=== PATIENT | male | born 1990 | race Caucasian/White ===

== ENCOUNTER 2021-08-21 06:35 | Day surgery (SDC) | payer OTHER ==
[2021-08-21 07:04] LABS: Absolute Lymphocytes (CBC) 1.2 K/uL (0.7-4.9); Hematocrit 49.5 % (39.6-49.0); Lymphocytes % 20.3 % (15.3-44.8); RBC Red Blood Cell Count 5.72 M/uL (4.33-5.43)
[2021-08-21] MEDS ORDERED: Ringers Lactate 1,000 ML IV ONE (07:12)
[2021-08-21 07:17] LABS: Potassium 3.9 mmol/L (3.5-5.1)
[2021-08-21] MEDS ORDERED: propofoL 200 MG/20 ML VIAL IV ONE (08:15)
[2021-08-21] MEDS ORDERED: dexAMETHasone 10 MG/ML VIAL ONE (08:15)
[2021-08-21] MEDS ORDERED: FENTANYL CITR 100 MCG/2 ML ONE (08:15)
[2021-08-21] MEDS ORDERED: KETOROLAC 30 MG/ML INJ ONE (08:15)
[2021-08-21] MEDS ORDERED: ROCURONIUM 50 MG/5 ML VIAL IV ONE (08:15)
[2021-08-21] MEDS ORDERED: LIDOCAINE 2% MPF 5 ML VIAL ONE (08:15)
[2021-08-21] MEDS ORDERED: MIDAZOLAM HCL 2 MG/2 ML INJ ONE (08:16)
[2021-08-21] MEDS ORDERED: ONDANSETRON 4 MG/2 ML VIAL ONE (08:16)
[2021-08-21] MEDS ORDERED: CEFAZOLIN/NS 1gm 1 GM/50 ML BAG ONE (08:30)
--- NOTE | 2021-08-21 09:30 | P.BOP ---
Preoperative diagnosis: tender posterior neck and left upper back subQ mass Postoperative diagnosis: same Primary procedure: 1. Excisional biopsy tender posterior neck subQ mass 3 x 3 cm Secondary procedure: 2. Excisional biopsy tender L upper back subQ mass 3 x 2.5 cm Estimated blood loss: <10cc Specimen: mass x 2 Findings: posterior neck and left upper back subQ mass Anesthesia: General Complications: None Transferred to: Recovery Room Condition: Good
--- NOTE | 2021-08-21 10:30 | OP ---
Date of Procedure: 08/21/2021 Surgeon: Sanjay Ortiz MD Preoperative Diagnosis: Tender posterior neck and left upper back subcutaneous mass. Postoperative Diagnosis: Tender posterior neck and left upper back subcutaneous mass. Procedures: 1.Excisional biopsy of tender posterior neck posterior subcutaneous mass 3 x 3 cm. 2.Excisional biopsy of tender left upper back subcutaneous mass 3 x 2.5 cm. Estimated Blood Loss: Less than 10 mL. Specimen: Mass x2. Finding: Deep posterior neck and left upper back subcutaneous mass. Anesthesia: General plus local. Indication: This is the case of a 30-year-old patient with those 2 masses, increasing in size and di scomfort and pain. He wants them excised. Benefits, alternatives, and risks of excision were fully explained, which include, but not limited to infection, bleeding, damage to adjacent structures, anes thesia complications, nonhealing wound, NH, and even . He also understands the chance of recurr ence, this may not relieve any symptoms. He might need more than one surgical intervention. He unde rstood, signed a consent. The areas of concern were marked by me and the patient in the holding room . Procedure In Detail: The patient was brought to the operating room, placed in supine position. Anes thesia was done without complication. The patient was placed in lateral decubitus position with prop er protection. The neck and back area were prepped and draped in usual sterile fashion. We proceede d to do the deep posterior neck area first. Each incision was done individually, but using the same technique which consisted of wedge incision of the skin all the way down to subcutaneous tissues sinc e this mass seems to be also attached to the skin. This goes all the way down to fascia of the muscl e, does not include the fascia of the muscle. Mass was completely excised and then this was closed a nd hemostasis was obtained. Local anesthesia was applied and closed with 3-0 chromic in the subcutan eous tissue and 3-0 nylon on the skin. Sponge count, instrument counts done. Then, we proceeded to do the left upper shoulder using the same technique and same closure. Sponge count and instrument co unts were correct for both cases. The patient tolerated the procedure well. The patient was sent to recovery in stable condition. AIMEE/BROOKS Voice ID: [id number] Report ID: [id number]
--- NOTE | 2021-08-21 10:30 | DS ---
Diagnosis: Tender posterior neck and left upper back subcutaneous mass. Procedure: Excision biopsy of posterior neck and left lower back subcutaneous mass. Disposition: Home. Activity: As tolerated. No heavy lifting. Plan: Followup in my office in 1 week. Call for appointment at [phone]. Keep area dry for 48 hour s, then may shower. Then, apply triple antibiotics and a gauze. Medications: Include Tylenol No.3 q.4 hours p.r.n. pain and Bactrim DS p.o. b.i.d. AIMEE/BROOKS Voice ID: [id number] Report ID: [id number]
[2021-08-21 11:03] VITALS: BP 117/69; TEMP 97.8; O2SAT 95
== END 2021-08-21 11:15 | disposition home or self-care (01) ==
LOC: OR 06:35
PROVIDERS: ATTEND Surgery
PROC: 0JB50ZZ Excision of Left Neck Subcutaneous Tissue and Fascia, Open Approach (ICD-10-PCS; 2021-08-21)
PROC: 0JB70ZZ Excision of Back Subcutaneous Tissue and Fascia, Open Approach (ICD-10-PCS; principal; 2021-08-21 08:30)
DX: L72.0 Epidermal cyst (principal); R22.1 Localized swelling, mass and lump, neck; U07.1 COVID-19
CPT/HCPCS: 85025; 80048; 36415; 88305; 11403; 11423; U0003; J2704; J2250; J3010; J1100; J0690; J7120; J2405; 88304

== ENCOUNTER 2021-08-26 13:57 | Emergency (ER) | payer OTHER ==
--- NOTE | 2021-08-26 15:30 | ER ---
Nurse's Notes [facility] Name: Dean Slater Age: 30 yrs Sex: Male : 1990 Arrival Date: 08/26/2021 Time: 14:06 Bed 5 Private MD: Diagnosis: Encounter for surgical aftercare following surgery on the skin and subcutaneous tissue Presentation: 08/26 14:18 Chief complaint: Patient states: had a cyst removed from back of neck by Dr Ortiz vg1 about a week ago, states incision has been fine and healing up until today. States about an hour ago felt a 'trickling' and fel behind neck and there was a 'large amount of blood and fluid' that came out, states 'it soaked my shirt'. Pt states back of neck 'feel tight and is throbbing'. Coronavirus screen: Vaccine status: Patient reports being unvaccinated. Client denies travel out of the [place] in the last 14 days. Ebola Screen: Patient negative for fever greater than or equal to 101.5 degrees Fahrenheit, and additional compatible Ebola Virus Disease symptoms. Initial Sepsis Screen: Does the patient meet any 2 criteria? HR > 90 bpm. Does the patient have a suspected source of infection?. Risk Assessment: Do you want to hurt yourself or someone else? Patient reports no desire to harm self or others. Onset of symptoms was August 26, 2021. 14:18 Method Of Arrival: Ambulatory vg1 14:18 Acuity: KRISTYN 3 vg1 Triage Assessment: 14:21 General: Appears uncomfortable, Behavior is calm, cooperative. Pain: Complains of pain vg1 in back of neck. Historical: - Allergies: 14:21 No Known Allergies; vg1 - Home Meds: 14:21 sulfamthoxazol [Active]; Tylenol #3 Oral [Active]; vg1 - PMHx: 14:21 None; vg1 - Immunization history:: Client reports having NOT received the Covid vaccine. - Social history:: Smoking status: Patient denies any tobacco usage or history of. Patient uses alcohol, occasionally. Screenin:56 Abuse screen: Denies threats or abuse. Denies injuries from another. Nutritional ph screening: No deficits noted. Tuberculosis screening: No symptoms or risk factors identified. Fall Risk None identified. Assessment: 15:53 General: Appears in no apparent distress. comfortable, well groomed, Behavior is calm, ph cooperative, appropriate for age, Denies fever, chills. Pain: Complains of pain in posterior cervical area. Neuro: Level of Consciousness is awake, alert, obeys commands, Oriented to person, place, time, situation. Cardiovascular: No deficits noted. Respiratory: No deficits noted. Derm: Skin is healthy with good turgor, Skin is pink, warm \T\ dry. incisions noted to cervical area and back of L shoulder, sutures in place, pt reports having cyst removal per Dr Ortiz, states that MANAGER DOCUMENTATION a large amount of blood and fluid came from site to back of neck, no bleeding currently noted. Musculoskeletal: Circulation, motion, and sensation intact. Range of motion: intact in all extremities. 15:57 Reassessment: Patient appears in no apparent distress at this time. Patient and/or ph family updated on plan of care and expected duration. Pain level reassessed. Patient is alert, oriented x 3, equal unlabored respirations, skin warm/dry/pink. Pt d/c home, has follow up Saturday w/ Dr Ortiz. Vital Signs: 14:18 BP 148 / 103; Pulse 106; Resp 17; Temp 97.8; Pulse Ox 99% ; Weight 105.23 kg; Height 5 vg1 ft. 6 in. (167.64 cm); Pain 4/10; 15:56 BP 138 / 97; Pulse 89; Resp 18; Temp 98.0; Pulse Ox 99% on R/A; ph 14:18 Body Mass Index 37.45 (105.23 kg, 167.64 cm) vg1 ED Course: 14:06 Patient arrived in ED. rg4 14:21 Triage completed. vg1 14:21 Arm band placed on. vg1 15:01 Coretta Manriquez FNP-C is PHCP. kb 15:01 Rafael Coughlin MD is Attending Physician. kb 15:19 Nadia Sage, IGOR is Primary Nurse. ph 15:56 Patient has correct armband on for positive identification. Placed in gown. Bed in low ph position. Call light in reach. Side rails up X 1. 15:56 No provider procedures requiring assistance completed. Patient did not have IV access ph during this emergency room visit. Administered Medications: No medications were administered Outcome: 15:30 Discharge ordered by . kb 15:57 Discharged to home ambulatory. ph 15:57 Condition: good 15:57 Discharge instructions given to patient, Instructed on discharge instructions, follow up and referral plans. Demonstrated understanding of instructions, follow-up care. 15:57 Patient left the ED. ph Signatures: Coretta Manriquez, STEFAN-C STEFAN-Nadia Fajardo RN RN ph Maria R Whitman4 Kimberly Whitman RN RN vg1
--- NOTE | 2021-08-26 15:30 | EDPHYS ---
Physician Documentation [facility] Name: Dean Slater Age: 30 yrs Sex: Male : 1990 Arrival Date: 08/26/2021 Time: 14:06 Bed 5 Private MD: ED Physician Rafael Coughlin HPI: 08/26 15:29 This 30 yrs old Male presents to ER via Ambulatory with complaints of Incision Problem. kb 15:29 Pt reports he had a cyst removed last week by Dr Ortiz. States today the site kb drained a large amount of blood and purulent fluid. Onset: The symptoms/episode began/occurred just prior to arrival. Severity of symptoms: At their worst the symptoms were moderate in the emergency department the symptoms have resolved. The patient has not experienced similar symptoms in the past. The patient has not recently seen a physician. Historical: - Allergies: 14:21 No Known Allergies; vg1 - Home Meds: 14:21 sulfamthoxazol [Active]; Tylenol #3 Oral [Active]; vg1 - PMHx: 14:21 None; vg1 - Immunization history:: Client reports having NOT received the Covid vaccine. - Social history:: Smoking status: Patient denies any tobacco usage or history of. Patient uses alcohol, occasionally. ROS: 15:27 Constitutional: Negative for fever, chills, and weight loss. kb 15:27 Skin: Positive for drainage from surgical incision site . 15:27 All other systems are negative. Exam: 15:28 Constitutional: This is a well developed, well nourished patient who is awake, alert, kb and in no acute distress. Head/Face: Normocephalic, atraumatic. ENT: Moist Mucous membranes Respiratory: Respirations even and unlabored. No increased work of breathing. Talking in full sentences MS/ Extremity: Pulses equal, no cyanosis. Neurovascular intact. Full, normal range of motion. Neuro: Awake and alert, GCS 15, oriented to person, place, time, and situation. Moves all extremities. Normal gait. Psych: Awake, alert, with orientation to person, place and time. Behavior, mood, and affect are within normal limits. 15:28 Skin: surgical incisions noted with sutures in place. Sites appear to be healing well. Swelling noted below incision site to neck. Vital Signs: 14:18 BP 148 / 103; Pulse 106; Resp 17; Temp 97.8; Pulse Ox 99% ; Weight 105.23 kg; Height 5 vg1 ft. 6 in. (167.64 cm); Pain 4/10; 15:56 BP 138 / 97; Pulse 89; Resp 18; Temp 98.0; Pulse Ox 99% on R/A; ph 14:18 Body Mass Index 37.45 (105.23 kg, 167.64 cm) vg1 MDM: 15:01 Patient medically screened. kb 15:26 Data reviewed: vital signs, nurses notes. Data interpreted: Pulse oximetry: on room air kb is 99 %. Interpretation: normal. Counseling: I had a detailed discussion with the patient and/or guardian regarding: the historical points, exam findings, and any diagnostic results supporting the discharge/admit diagnosis, the need for outpatient follow up, a general surgeon, to return to the emergency department if symptoms worsen or persist or if there are any questions or concerns that arise at home. Physician consultation: Sanjay Ortiz MD was contacted at 15:26, regarding consult, patient's condition, and will see patient in office, next week, Recommends dry gauze dressing, continue antibiotics and follow up in his office on Saturday. . ED course: Discussed plan with pt after speaking with dr Ortiz. Pt in agreement with plan of care. Administered Medications: No medications were administered Disposition: 08/27 13:22 Co-signature as Attending Physician, Rafael Coughlin MD I agree with the assessment and evens plan of care. Disposition Summary: 08/26/21 15:30 Discharge Ordered Location: Home kb Condition: Stable kb Diagnosis - Encounter for surgical aftercare following surgery on the skin and subcutaneous kb tissue Followup: kb - With: Emergency Department - When: As needed - Reason: Worsening of condition Followup: kb - With: Private Physician - When: 2 - 3 days - Reason: Recheck today's complaints, Continuance of care, Re-evaluation by your physician Discharge Instructions: - Discharge Summary Sheet kb - Incision Care, Adult, [id number] kb Forms: - Medication Reconciliation Form kb - Thank You Letter kb - Antibiotic Education kb - Prescription Opioid Use kb - Work release form eb Signatures: Dispatcher [employer] EDCoretta Diego, LEAD PL SQL DEVELOPER-C STEFAN-Rafael Holguin MD MD cha Garcia, Victoria, RN RN vg1 Corrections: (The following items were deleted from the chart) 08/26 15:32 15:05 [employer].JANE.ANDRES ordered. EDMS EDMS
[2021-08-26 16:09] VITALS: O2SAT 99
[2021-08-26 16:12] VITALS: BP 138/97; TEMP 98
== END 2021-08-26 15:57 | disposition home or self-care (01) ==
LOC: ER 13:57
DX: Z48.817 Encounter for surgical aftercare following surgery on the skin and subcutaneous tissue (principal)
CPT/HCPCS: 99281

== ENCOUNTER 2022-07-23 03:01 | Emergency (ER) | payer OTHER ==
--- NOTE | 2022-07-23 03:22 | EDPHYS ---
Physician Documentation [facility] Name: Dean Slater Age: 31 yrs Sex: Male : 1990 Arrival Date: 07/23/2022 Time: 03:05 Bed IW1 Private MD: ED Physician Renny Mays HPI: 07/23 03:24 This 31 yrs old Male presents to ER via Ambulatory with complaints of Jaw Pain, Facial rt Swelling. 03:24 The patient presents with swelling. The problem is located in the face. Onset: The rt symptoms/episode began/occurred yesterday. Duration: The symptoms are continuous. Modifying factors: The symptoms are alleviated by nothing, the symptoms are aggravated by nothing. Associated signs and symptoms: The patient has no apparent associated signs or symptoms. Severity of symptoms: At their worst the symptoms were mild. Presents to the ED with 1 day of left-sided facial swelling at the jawline. Denies any dental pain, difficulty swallowing. Denies fever, chills, neck stiffness. Denies other acute complaints at this time, symptoms are mild in severity, no other aggravating alleviating factors, pain is aching nature, nonradiating. Historical: - Allergies: 03:16 No Known Allergies; vc1 - Home Meds: 03:16 None [Active]; vc1 - PMHx: 03:16 None; vc1 - Immunization history:: Client reports having NOT received the Covid vaccine. - Social history:: Smoking status: Patient/guardian denies using tobacco, the patient reports quitting approximately 4 years ago. ROS: 03:24 Constitutional: Negative for fever, chills, and weight loss, Neck: Negative for injury, rt pain, and swelling, Respiratory: Negative for shortness of breath, cough, wheezing, and pleuritic chest pain, Abdomen/GI: Negative for abdominal pain, nausea, vomiting, diarrhea, and constipation, MS/Extremity: Negative for injury and deformity, Skin: Negative for injury, rash, and discoloration, Neuro: Negative for headache, weakness, numbness, tingling, and seizure, Psych: Negative for depression, anxiety, suicide ideation, homicidal ideation, and hallucinations. 03:24 ENT: Positive for Jaw pain, swelling. Exam: 03:24 Constitutional: This is a well developed, well nourished patient who is awake, alert, rt and in no acute distress. Head/Face: Normocephalic, atraumatic. Eyes: Pupils equal round and reactive to light, extra-ocular motions intact. Lids and lashes normal. Conjunctiva and sclera are non-icteric and not injected. Cornea within normal limits. Periorbital areas with no swelling, redness, or edema. Neck: Trachea midline, no thyromegaly or masses palpated, and no cervical lymphadenopathy. Supple, full range of motion without nuchal rigidity, or vertebral point tenderness. No Meningismus. Chest/axilla: Normal chest wall appearance and motion. Nontender with no deformity. No lesions are appreciated. Cardiovascular: Regular rate and rhythm with a normal S1 and S2. No gallops, murmurs, or rubs. Normal PMI, no JVD. No pulse deficits. Skin: Warm, dry with normal turgor. Normal color with no rashes, no lesions, and no evidence of cellulitis. MS/ Extremity: Pulses equal, no cyanosis. Neurovascular intact. Full, normal range of motion. Neuro: Awake and alert, GCS 15, oriented to person, place, time, and situation. Cranial nerves II-XII grossly intact. Motor strength 5/5 in all extremities. Sensory grossly intact. Cerebellar exam normal. Normal gait. Psych: Awake, alert, with orientation to person, place and time. Behavior, mood, and affect are within normal limits. 03:24 ENT: Swelling and tenderness over left parotid gland, no oral lesions, erythema, no tonsillar hypertrophy, uvula is midline.. Vital Signs: 03:14 Weight 106.59 kg; Height 5 ft. 7 in. (170.18 cm); Pain 4/10; vc1 03:22 Pulse 82; Resp 16; Temp 97.5; Pulse Ox 98% ; vc1 03:26 BP 157 / 109; vc1 03:14 Body Mass Index 36.81 (106.59 kg, 170.18 cm) vc1 MDM: 03:15 Patient medically screened. rt 03:24 Differential diagnosis: Dental caries, proctitis, RPA, EMT DRIVER, Enzo's angina. Data rt reviewed: vital signs, nurses notes. ED course: Patient presents to the ED with left-sided facial swelling, clinically has an uncomplicated parotitis. Vital signs are stable. We will treat with antibiotics. Discussed sour candies as a lozenge. Patient does not have any evidence of airway compromise. Is stable for outpatient care, return precautions discussed. Administered Medications: No medications were administered Disposition Summary: 07/23/22 03:21 Discharge Ordered Location: Home rt Problem: new rt Symptoms: are unchanged rt Condition: Stable rt Diagnosis - Parotidis rt - Parotitis rt Followup: rt - With: Private Physician - When: 2 - 3 days - Reason: Discharge Instructions: - Discharge Summary Sheet rt - Parotitis rt Forms: - Medication Reconciliation Form rt - Thank You Letter rt - Antibiotic Education rt - Prescription Opioid Use rt Prescriptions: - Clindamycin HCl 300 mg Oral Capsule - take 1 capsule by ORAL route every 6 hours for 10 days; 40 capsule; Refills: 0, rt Product Selection Permitted Signatures: Jessica Penaloza RN RN vc1 Renny Mays MD MD rt
--- NOTE | 2022-07-23 03:22 | ER ---
Nurse's Notes [facility] Name: Dean Slater Age: 31 yrs Sex: Male : 1990 Arrival Date: 07/23/2022 Time: 03:05 Bed IW1 Private MD: Diagnosis: Parotitis Presentation: 07/23 03:14 Chief complaint: Patient states: "Yesterday it felt like my left side of my jaw was vc1 sore. This morning I woke up and it feels like their is a baseball on the side of my face. It is throbbing, pounding and uncomfortable.". Coronavirus screen: Vaccine status: Patient reports being unvaccinated. Ebola Screen: No symptoms or risks identified at this time. Initial Sepsis Screen:. Risk Assessment: Do you want to hurt yourself or someone else? Patient reports no desire to harm self or others. Onset of symptoms was July 22, 2022. 03:14 Method Of Arrival: Ambulatory vc1 03:14 Acuity: KRISTYN 4 vc1 03:27 Initial Sepsis Screen: Does the patient meet any 2 criteria? No. Patient's initial vc1 sepsis screen is negative. Does the patient have a suspected source of infection? No. Patient's initial sepsis screen is negative. Triage Assessment: 03:20 General: Appears in no apparent distress. uncomfortable, Behavior is calm, cooperative, vc1 appropriate for age. Pain: Complains of pain in left submandibular area Pain does not radiate. Pain currently is 4 out of 10 on a pain scale. Quality of pain is described as pressure. EENT: No deficits noted. Neuro: Level of Consciousness is awake, alert, obeys commands, Oriented to person, place, time, situation, Appropriate for age. Cardiovascular: No deficits noted. Respiratory: Airway is patent Respiratory effort is even, unlabored, Respiratory pattern is regular, symmetrical. GI: No deficits noted. : No deficits noted. Derm: No deficits noted. Musculoskeletal: No deficits noted. Historical: - Allergies: 03:16 No Known Allergies; vc1 - Home Meds: 03:16 None [Active]; vc1 - PMHx: 03:16 None; vc1 - Immunization history:: Client reports having NOT received the Covid vaccine. - Social history:: Smoking status: Patient/guardian denies using tobacco, the patient reports quitting approximately 4 years ago. Screenin:21 [facility] ED Fall Risk Assessment (Adult) History of falling in the last 3 months, vc1 including since admission No falls in past 3 months (0 pts) Confusion or Disorientation No (0 pts) Intoxicated or Sedated No (0 pts) Impaired Gait No (0 pts) Mobility Assist Device Used No (0 pt) Altered Elimination No (0 pt) Score/Fall Risk Level 0 - 2 = Low Risk Oriented to surroundings, Maintained a safe environment, Educated pt \\T\\ family on fall prevention, incl call for assistance when getting out of bed. Abuse screen: Denies threats or abuse. 03:22 Nutritional screening: No deficits noted. Tuberculosis screening: No symptoms or risk vc1 factors identified. Vital Signs: 03:14 Weight 106.59 kg; Height 5 ft. 7 in. (170.18 cm); Pain 4/10; vc1 03:22 Pulse 82; Resp 16; Temp 97.5; Pulse Ox 98% ; vc1 03:26 BP 157 / 109; vc1 03:14 Body Mass Index 36.81 (106.59 kg, 170.18 cm) vc1 ED Course: 03:05 Patient arrived in ED. ja2 03:14 Renny Mays MD is Attending Physician. rt 03:16 Triage completed. vc1 03:21 Arm band placed on left wrist. vc1 03:21 No provider procedures requiring assistance completed. Patient did not have IV access vc1 during this emergency room visit. 03:22 Patient has correct armband on for positive identification. vc1 Administered Medications: No medications were administered Medication: 03:22 VIS not applicable for this client. vc1 Outcome: 03:21 Discharge ordered by . rt 03:26 Discharged to home ambulatory. vc1 03:26 Condition: good 03:26 Discharge instructions given to patient, Instructed on discharge instructions, follow up and referral plans. medication usage, Demonstrated understanding of instructions, follow-up care, medications, Prescriptions given X 1. 03:28 Patient left the ED. vc1 Signatures: Mikaela Vega2 Jessica Penaloza RN RN vc1 Renny Mays MD MD rt
[2022-07-23 03:57] VITALS: TEMP 97.5; O2SAT 98
[2022-07-23 03:58] VITALS: BP 157/109
== END 2022-07-23 03:28 | disposition home or self-care (01) ==
LOC: ER 03:01
DX: K11.20 Sialoadenitis, unspecified (principal)
CPT/HCPCS: 99282